=== PATIENT | female | born 1930 | race Caucasian/White ===

== ENCOUNTER 2017-07-19 09:35 | Observation (INO) | payer OTHER, MEDICAID ==
[2017-07-19] VITALS (7 sets, daily range): BP systolic 114–199; BP diastolic 56–78; PULSE 80–98; RESP 18–20; TEMP 96.1–97.9; O2SAT 91–95
[~2017-07-19] VITALS: Ht 165.1 cm; Wt 46.3 kg
[~2017-07-19 09:35] MED LIST: AMLO5TAB22 PO; SM A81CH CHEW
[2017-07-19] MEDS ORDERED: ASPI1TAB57 PO (09:55)
[2017-07-19] MEDS ORDERED: ALBU0.63 NEB (09:55)
[2017-07-19] MEDS ORDERED: LOVA20TA PO (09:55)
[2017-07-19] MEDS ORDERED: SYMB80AE INH (09:55)
[2017-07-19] MEDS ORDERED: LISI2.5T3 PO (09:55)
[2017-07-19] MEDS ORDERED: AMLO10TA2 PO (09:55)
[2017-07-19] MEDS ORDERED: SODIUM CHLORIDE 0.9% FLUSH 10 ML FLUSH IVF PRN (10:00)
--- NOTE | 2017-07-19 10:16 | PD ---
HPI Chief Complaint: Dizziness Time Seen by Provider: 10:14 Travel History International Travel<30 days: No Contact w/Intl Traveler<30days: No Traveled to known affect area: No History of Present Illness HPI 86yo F presented to the ED with a chief complaint of dizziness since Tuesday, . The pt states that on Tuesday she had an episode of feeling dizzy while in [facility], and said that " everything felt like it was moving." Pt admits to only feeling dizzy while standing. Pt states that she has had SOB for about three weeks, along with a productive cough. Pt denies feelings of the room spinning, vomiting, diarrhea, chest pain, abdominal pain or syncope. Modifying Factors: None Associated Signs & Symptoms: Dizziness, coughing, shortness of breath Risk Factors: Elderly PFSH Past Medical History COPD: Yes Coronary Artery Disease: Yes Diminished Hearing: No Gastrointestinal Disorders: Yes (FEEDING TUBE PLACED 07/2011- REMOVED 04/2012) Hypertension: Yes Tetanus Vaccination: < 5 Years Influenza Vaccination: Yes ?: Not Menopausal: Yes Past Surgical History Abdominal Surgery: Yes (FEEDING TUBE S/P VALVE REPLACEMENT) Cardiac Surgery: Yes (Heart Valve) Hysterectomy: Yes Valve Replacement: Yes Social History Alcohol Use: No Tobacco Use: No Substance Use: No Allergies-Medications (Allergen,Severity, Reaction): Coded Allergies: neomycin (Unverified Allergy, Severe, FACIAL SWELLING, 07/19/17) Uncoded Allergies: Imidozozldnyl (Adverse Reaction, Severe, unknown, 12/09/15) . Reported Meds & Prescriptions Reported Meds & Active Scripts Active Reported Symbicort Inh (Budesonide/Formoterol Fumarate) 80-4.5 Mcg/Act Aero 2 Puff INH Q12HR Albuterol Neb (Albuterol Sulfate) 0.63 Mg/3 Ml Neb 0.63 Mg NEB Q6HR NEB PRN Amlodipine (Amlodipine Besylate) 10 Mg Tab 10 Mg PO DAILY Aspirin 81 (Aspirin) 81 Mg Tabdr 81 Mg PO DAILY Lisinopril 2.5 Mg Tab 2.5 Mg PO DAILY Lovastatin 20 Mg Tab 20 Mg PO DAILY Review of Systems Except as stated in HPI: all other systems reviewed are Neg HENT: Positive: Lightheadedness Respiratory: Positive: Cough, Shortness of Breath Physical Exam Narrative GENERAL: Well-developed, thin, elderly white female patient who is currently and mild distress. Awake and oriented 3. She is fairly hard of hearing. SKIN: Focused skin assessment warm/dry. HEAD: Atraumatic. Normocephalic. EYES: Pupils equal and round. No scleral icterus. No injection or drainage. ENT: No nasal bleeding or discharge. Mucous membranes pink and moist. NECK: Trachea midline. No JVD. Supple. CARDIOVASCULAR: Regular rate and rhythm. No murmur appreciated. RESPIRATORY: Mild accessory muscle use. With wheezing throughout. Breath sounds equal bilaterally. GASTROINTESTINAL: Abdomen soft, non-tender, nondistended. Hepatic and splenic margins not palpable. MUSCULOSKELETAL: No obvious deformities. No clubbing. No cyanosis. No edema. NEUROLOGICAL: Awake and alert. No obvious cranial nerve deficits. Motor grossly within normal limits. Normal speech. PSYCHIATRIC: Appropriate mood and affect; insight and judgment normal. Data Data Last Documented VS Vital Signs Date Time Temp Pulse Resp B/P (MAP) Pulse Ox O2 Delivery O2 Flow Rate FiO2 07/19/17 11:30 88 18 132/68 (89) 95 07/19/17 09:56 Room Air 07/19/17 09:39 97.9 Orders Orders Electrocardiogram (07/19/17 09:54) Complete Blood Count With Diff (07/19/17 09:54) Comprehensive Metabolic Panel (07/19/17 09:54) Magnesium (Mg) (07/19/17 09:54) Ckmb (Isoenzyme) Profile (07/19/17 09:54) Troponin I (07/19/17 09:54) Urinalysis - C+S If Indicated (07/19/17 09:54) Ecg Monitoring (07/19/17 09:54) Iv Access Insert/Monitor (07/19/17 09:54) Oximetry (07/19/17 09:54) Sodium Chloride 0.9% Flush (Ns Flush) (07/19/17 10:00) Chest, Single Ap (07/19/17 10:00) Ct Brain W/O Iv Contrast(Rout) (07/19/17 10:00) Blood Culture (07/19/17 10:14) Lactic Acid Sepsis Protocol (07/19/17 10:14) Methylprednisolone So Succ Inj (Solumedr (07/19/17 11:30) Albuterol-Ipratropium Neb (Duoneb Neb) (07/19/17 11:30) Azithromycin Inj (Zithromax Inj) (07/19/17 11:30) Admit Order (Ed Use Only) (07/19/17 13:03) Labs Laboratory Tests Test 07/19/17 10:05 07/19/17 10:35 07/19/17 11:00 White Blood Count 8.8 TH/MM3 Red Blood Count 3.76 MIL/MM3 Hemoglobin 11.7 GM/DL Hematocrit 36.2 % Mean Corpuscular Volume 96.2 FL Mean Corpuscular Hemoglobin 31.1 PG Mean Corpuscular Hemoglobin Concent 32.3 % Red Cell Distribution Width 13.3 % Platelet Count 291 TH/MM3 Mean Platelet Volume 7.8 FL Neutrophils (%) (Auto) 86.4 % Lymphocytes (%) (Auto) 6.1 % Monocytes (%) (Auto) 5.4 % Eosinophils (%) (Auto) 1.5 % Basophils (%) (Auto) 0.6 % Neutrophils # (Auto) 7.6 TH/MM3 Lymphocytes # (Auto) 0.5 TH/MM3 Monocytes # (Auto) 0.5 TH/MM3 Eosinophils # (Auto) 0.1 TH/MM3 Basophils # (Auto) 0.1 TH/MM3 CBC Comment DIFF FINAL Differential Comment Blood Urea Nitrogen 20 MG/DL Creatinine 1.30 MG/DL Random Glucose 114 MG/DL Total Protein 6.8 GM/DL Albumin 3.0 GM/DL Calcium Level 8.7 MG/DL Magnesium Level 2.0 MG/DL Alkaline Phosphatase 89 U/L Aspartate Amino Transf (AST/SGOT) 15 U/L Alanine Aminotransferase (ALT/SGPT) 15 U/L Total Bilirubin 0.6 MG/DL Sodium Level 141 MEQ/L Potassium Level 4.4 MEQ/L Chloride Level 104 MEQ/L Carbon Dioxide Level 32.2 MEQ/L Anion Gap 5 MEQ/L Estimat Glomerular Filtration Rate 39 ML/MIN Total Creatine Kinase 45 U/L Troponin I LESS THAN 0.02 NG/ML Lactic Acid Level 1.5 mmol/L Urine Collection Type CLEAN CATCH Urine Color YELLOW Urine Turbidity CLEAR Urine pH 6.5 Urine Specific [place] 1.015 Urine Protein 30 mg/dL Urine Glucose (UA) NEG mg/dL Urine Ketones NEG mg/dL Urine Occult Blood NEG Urine Nitrite NEG Urine Bilirubin NEG Urine Leukocyte Esterase TRACE Urine WBC 3-5 /hpf Urine Squamous Epithelial Cells 0-5 /hpf Urine Hyaline Casts 6-9 /lpf Microscopic Urinalysis Comment CULT NOT INDICATED Urine Collection Time 11:00 [facility] Medical Decision Making Medical Screen Exam Complete: Yes Emergency Medical Condition: Yes Medical Record Reviewed: Yes Interpretation(s) EKG shows NSR, no ST elevation or depression, and no arrhythmias. No significant T-wave inversions. Laboratory Tests Test 07/19/17 10:05 07/19/17 10:35 07/19/17 11:00 Red Blood Count 3.76 MIL/MM3 (4.00-5.30) Neutrophils (%) (Auto) 86.4 % (16.0-70.0) Lymphocytes (%) (Auto) 6.1 % (9.0-44.0) Lymphocytes # (Auto) 0.5 TH/MM3 (1.0-4.8) Blood Urea Nitrogen 20 MG/DL (7-18) Creatinine 1.30 MG/DL (0.50-1.00) Random Glucose 114 MG/DL (74-106) Albumin 3.0 GM/DL (3.4-5.0) Carbon Dioxide Level 32.2 MEQ/L (21.0-32.0) Estimat Glomerular Filtration Rate 39 ML/MIN (>89) Troponin I LESS THAN 0.02 NG/ML Urine Protein 30 mg/dL (NEG-TRACE) Urine Leukocyte Esterase TRACE (NEG) Urine Hyaline Casts 6-9 /lpf (RARE) Last [address] 07/19/17 1000 Signed Impressions: Service Date/Time: Wednesday, July 19, 2017 10:14 - CONCLUSION: 1. Stable senescent changes without acute intracranial abnormality. Donald Teixeira MD Chest X-Ray 07/19/17 1000 Signed Impressions: Service Date/Time: Wednesday, July 19, 2017 10:12 - CONCLUSION: Diffuse reticulonodular interstitial prominence of undetermined chronicity. Vern Miranda MD Differential Diagnosis Pneumonia versus COPD versus CHF versus brown pneumonitis versus URI versus metabolic issues versus dehydration versus acute intracranial processes versus CVA Narrative Course Patient did not have any focal neurological deficits. CT of the brain is negative for any signs of acute processes. She was tachycardic on ambulation to the bathroom in the ER and felt more symptomatic. Her saturations were in the low to mid 90s on room air. Chest x-ray did show some interstitial pneumonitis bilaterally and there is concern of possible atypical pneumonia. IV antibiotics were initiated after cultures were drawn. Lactate was not significant elevated. Considering her symptoms, my plan would be to admit her for further treatment. Case was discussed with Dr. Earl for admission. Diagnosis Primary Impression: Atypical pneumonia Additional Impression: Dizziness Admitting Information Admitting Physician Requests: Admit Son Cuenca MD Jul 19, 2017 10:16
[2017-07-19 10:17] LABS: AUTOMATED NEUTROPHIL # 7.6 TH/MM3 (1.8-7.7); BASOPHIL # 0.1 TH/MM3 (0-0.2); BASOPHIL % 0.6 % (0.0-2.0); EOSINOPHIL # 0.1 TH/MM3 (0-0.4); EOSINOPHIL % 1.5 % (0.0-4.0); HEMATOCRIT 36.2 % (35.0-46.0); HEMOGLOBIN 11.7 GM/DL (11.6-15.3); LYMPH % 6.1 % (9.0-44.0); LYMPHOCYTE # 0.5 TH/MM3 (1.0-4.8); MEAN CELL VOLUME 96.2 FL (80.0-100.0); MEAN CORPUSCULAR HEMOGLOBIN 31.1 PG (27.0-34.0); MEAN CORPUSCULAR HGB CONC 32.3 % (32.0-36.0); MEAN PLATELET VOLUME 7.8 FL (7.0-11.0); MONO % 5.4 % (0.0-8.0); MONOCYTE # 0.5 TH/MM3 (0-0.9); NEUT % 86.4 % (16.0-70.0); PLATELET COUNT 291 TH/MM3 (150-450); RED BLOOD COUNT 3.76 MIL/MM3 (4.00-5.30); RED CELL DISTRIBUTION WIDTH 13.3 % (11.6-17.2); WHITE BLOOD COUNT 8.8 TH/MM3 (4.0-11.0)
[2017-07-19 10:25] LABS: CHLORIDE 104 MEQ/L (98-107); SODIUM (NA) 141 MEQ/L (136-145)
[2017-07-19 10:28] LABS: CALCIUM 8.7 MG/DL (8.5-10.1)
--- NOTE | 2017-07-19 10:28 | RADRPT ---
EXAM DATE/TIME: 07/19/2017 10:12 [facility] COMPARISON: No previous studies available for comparison. INDICATIONS : Cough, short of breath. MEDICAL HISTORY : Chronic obstructive pulmonary disease. Cardiovascular disease. Hypertension. SURGICAL HISTORY : valve replacement ENCOUNTER: Initial ACUITY: 3 weeks PAIN SCORE: 0/10 LOCATION: Bilateral chest FINDINGS: There is diffuse symmetric bilateral reticulonodular interstitial disease of undetermined chronicity. There is no significant alveolar consolidation or pleural effusion suspected. Heart size is at upper limits of normal. Mediastinal contours are satisfactory. Prosthetic aortic valve is noted. Prominent atherosclerotic vascular calcification is present. Sternotomy wires are noted. CONCLUSION: Diffuse reticulonodular interstitial prominence of undetermined chronicity. Vern Miranda MD on July 19, 2017 at 10:23 Board Certified Radiologist. This report was verified electronically.
--- NOTE | 2017-07-19 10:28 | RADRPT ---
EXAM DATE/TIME: 07/19/2017 10:14 [facility] COMPARISON: CT BRAIN W/O CONTRAST, December 09, 2015, 11:53. INDICATIONS : Dizziness. RADIATION DOSE: 58.70 CTDIvol (mGy) MEDICAL HISTORY : Cardiovascular disease. Hypertension. SURGICAL HISTORY : Hysterectomy. Valve replacement. ENCOUNTER: Initial ACUITY: 3 weeks PAIN SCALE: 0/10 LOCATION: cranial TECHNIQUE: Multiple contiguous axial images were obtained of the head. Using automated exposure control and adj ustment of the mA and/or kV according to patient size, radiation dose was kept as low as reasonably a chievable to obtain optimal diagnostic quality images. DICOM format image data is available electro nically for review and comparison. FINDINGS: CEREBRUM: Mild to moderate diffuse atrophy. The ventricles are normal for degree of atrophy. Stable left basal ganglia calcification. No evidence of midline shift, mass lesion, hemorrhage or acute infarction. N o extra-axial fluid collections are seen. POSTERIOR FOSSA: The cerebellum and brainstem are intact. The 4th ventricle is midline. The cerebellopontine angle i s unremarkable. EXTRACRANIAL: The visualized portion of the orbits is intact. SKULL: The calvaria is intact. No evidence of skull fracture. CONCLUSION: 1. Stable senescent changes without acute intracranial abnormality. Donald Teixeira MD on July 19, 2017 at 10:24 Board Certified Radiologist. This report was verified electronically.
[2017-07-19 10:29] LABS: BICARBONATE 32.2 MEQ/L (21.0-32.0); BLOOD UREA NITROGEN 20 MG/DL (7-18); GLUCOSE,RANDOM 114 MG/DL (74-106)
[2017-07-19 10:32] LABS: ALT (GPT) 15 U/L (10-53); AST (GOT) 15 U/L (15-37); GLOMERULAR FILTRATION RATE 39 ML/MIN (>89)
[2017-07-19 10:34] LABS: TOTAL BILIRUBIN ADULT 0.6 MG/DL (0.2-1.0); TOTAL PROTEIN 6.8 GM/DL (6.4-8.2)
[2017-07-19 10:35] LABS: ALKALINE PHOSPHATASE 89 U/L (45-117)
[2017-07-19 10:37] LABS: TROPONIN I LESS THAN 0.02 NG/ML (0.02-0.05)
[2017-07-19 11:05] LABS: BILIRUBIN, URINE NEG (NEG); BLOOD, URINE NEG (NEG); GLUCOSE,URINE NEG (NEG); KETONE, URINE NEG (NEG); NITRITE,URINE NEG (NEG); PH, URINE 6.5 (5.0-8.5); URINE LEUKOCYTE ESTERASE TRACE (NEG)
[2017-07-19 11:11] LABS: URINE COLOR YELLOW (YELLW/STRAW)
[2017-07-19 11:12] LABS: SQUAMOUS EPITHELIAL CELL URINE 0-5 /hpf (0-5)
[2017-07-19] MEDS ORDERED: AZITHROMYCIN INJ 500 MG in SODIUM CHLOR 0.9% 250 ML INJ 250 ML IV ONE (11:30)
[2017-07-19] MEDS ORDERED: methylPREDNISolone SOD SUCC 125 MG/2 ML VIAL IV PUSH ONE (11:30)
[2017-07-19] MEDS: RESP: ALBUTEROL 2.5 MG/IPRATROPIUM 0.5 MG NEB (SCH) INH ×2 (11:32→11:33)
--- NOTE | 2017-07-19 14:06 | HHI.HP ---
[facility] Leobardo Mcleod MD Admission Diagnosis atypical pneumonia/dizziness Diagnoses: Chief Complaint: Coughing and weakness Travel History International Travel<30 Days: No Contact w/Intl Traveler <30 Da: No Traveled to Known Affected Are: No History of Present Illness 86-year-old white female being admitted for atypical pneumonia and weakness. Patient was in her usual state of health until about 3 weeks ago when she began experiencing onset of a productive cough and generalized weakness and dizziness. Describes the sputum as nonbloody. She went to her primary care provider and underwent some sort of shot of which she cannot remember in the office and was sent home. She states that she has been using her albuterol inhaler nebulizer regularly and what sounds like Symbicort twice a day as well. She states she went back to her primary care provider for follow-up due to no improvement in her symptoms and was sent home to get x-rays. Patient states that she also went to [facility] a few days ago and states that she almost lost consciousness with her vision almost totally blackening out. She says she quickly sat down on an outside bench and regained her vision and her stance. After a few minutes she stood up and says she was able to ambulate home safely. Due to the persistence of her symptoms she decided come to the emergency department. She states she has some lung disease but can't remember name. Says she does see a lung doctor. In the emergency department she received antibiotics. Review of Systems Except as stated in HPI: all other systems reviewed are Neg Past Family Social History Past Medical History Unspecified lung disease Past Surgical History Heart valve replacement Allergies: Coded Allergies: neomycin (Unverified Allergy, Severe, FACIAL SWELLING, 07/19/17) Uncoded Allergies: Imidozozldnyl (Adverse Reaction, Severe, unknown, 12/09/15) . Family History No family history of lung cancer or lung disease Physical Exam Vital Signs Vital Signs Date Time Temp Pulse Resp B/P (MAP) Pulse Ox O2 Delivery O2 Flow Rate FiO2 07/19/17 11:30 88 18 132/68 (89) 95 07/19/17 09:56 95 Room Air 07/19/17 09:56 98 18 139/78 (98) 95 07/19/17 09:50 95 Room Air 07/19/17 09:39 97.9 81 18 121/60 (80) 94 Physical Exam VS: afebrile GENERAL: Elderly white female, thin, minimal distress secondary to coughing SKIN: Warm and dry. EYES: No scleral icterus. No injection or drainage. ENT: No nasal bleeding or discharge. Mucous membranes pink and moist. CARDIOVASCULAR: Regular rate and rhythm. no murmurs RESPIRATORY: No accessory muscle use. Junky breath sounds GASTROINTESTINAL: Abdomen soft, non-tender, nondistended. Extremities: No clubbing, cyanosis, or edema. No obvious deformities. MUSCULOSKELETAL: grossly intact ROM with 4/5 strength in upper and lower extremities proximally; slightly diminished muscle bulk and tone for age and habitus NEUROLOGICAL: Awake and alert. No obvious cranial nerve deficits. No facial droop nor slurred speech noted. PSYCHIATRIC: Appropriate mood and affect; insight and judgment normal. Laboratory Laboratory Tests Test 07/19/17 10:05 07/19/17 10:35 07/19/17 11:00 White Blood Count 8.8 Red Blood Count 3.76 Hemoglobin 11.7 Hematocrit 36.2 Mean Corpuscular Volume 96.2 Mean Corpuscular Hemoglobin 31.1 Mean Corpuscular Hemoglobin Concent 32.3 Red Cell Distribution Width 13.3 Platelet Count 291 Mean Platelet Volume 7.8 Neutrophils (%) (Auto) 86.4 Lymphocytes (%) (Auto) 6.1 Monocytes (%) (Auto) 5.4 Eosinophils (%) (Auto) 1.5 Basophils (%) (Auto) 0.6 Neutrophils # (Auto) 7.6 Lymphocytes # (Auto) 0.5 Monocytes # (Auto) 0.5 Eosinophils # (Auto) 0.1 Basophils # (Auto) 0.1 CBC Comment DIFF FINAL Differential Comment Blood Urea Nitrogen 20 Creatinine 1.30 Random Glucose 114 Total Protein 6.8 Albumin 3.0 Calcium Level 8.7 Magnesium Level 2.0 Alkaline Phosphatase 89 Aspartate Amino Transf (AST/SGOT) 15 Alanine Aminotransferase (ALT/SGPT) 15 Total Bilirubin 0.6 Sodium Level 141 Potassium Level 4.4 Chloride Level 104 Carbon Dioxide Level 32.2 Anion Gap 5 Estimat Glomerular Filtration Rate 39 Total Creatine Kinase 45 Troponin I LESS THAN 0.02 Lactic Acid Level 1.5 Urine Collection Type CLEAN CATCH Urine Color YELLOW Urine Turbidity CLEAR Urine pH 6.5 Urine Specific [place] 1.015 Urine Protein 30 Urine Glucose (UA) NEG Urine Ketones NEG Urine Occult Blood NEG Urine Nitrite NEG Urine Bilirubin NEG Urine Leukocyte Esterase TRACE Urine WBC 3-5 Urine Squamous Epithelial Cells 0-5 Urine Hyaline Casts 6-9 Microscopic Urinalysis Comment CULT NOT INDICATED Urine Collection Time 11:00 Date/Time Source Procedure Growth Status 07/19/17 10:30 Blood Peripheral Aerobic Blood Culture Pending Received 07/19/17 10:30 Blood Peripheral Anaerobic Blood Culture Pending Received Result Diagram: 07/19/17 1005 07/19/17 1005 Imaging Last Impressions Head CT 07/19/17 1000 Signed Impressions: Service Date/Time: Wednesday, July 19, 2017 10:14 - CONCLUSION: 1. Stable senescent changes without acute intracranial abnormality. Donald Teixeira MD Chest X-Ray 07/19/17 1000 Signed Impressions: Service Date/Time: Wednesday, July 19, 2017 10:12 - CONCLUSION: Diffuse reticulonodular interstitial prominence of undetermined chronicity. Vern Miranda MD Caprini VTE Risk Assessment Caprini VTE Risk Assessment: Mod/High Risk (score >= 2) Caprini Risk Assessment Model Point Value = 1 Point Value = 2 Point Value = 3 Point Value = 5 Age 41-60 Minor surgery BMI > 25 kg/m2 Swollen legs Varicose veins or History of unexplained or recurrent spontaneous Oral contraceptives or hormone replacement Sepsis (< 1 month) Serious lung disease, including pneumonia (< 1 month) Abnormal pulmonary function Acute myocardial infarction Congestive heart failure (< 1 month) History of inflammatory bowel disease Medical patient at bed rest Age 61-74 Arthroscopic surgery Major open surgery (> 45 min) Laparoscopic surgery (> 45 min) Malignancy Confined to bed (> 72 hours) Immobilizing plaster cast Central venous access Age >= 75 History of VTE Family history of VTE Factor V Leiden Prothrombin [id number] Lupus anticoagulant Anticardiolipin antibodies Elevated serum homocysteine Heparin-induced thrombocytopenia Other congenital or acquired thrombophilia Stroke (< 1 month) Elective arthroplasty Hip, pelvis, or leg fracture Acute spinal cord injury (< 1 month) Prophylaxis Regimen Total Risk Factor Score Risk Level Prophylaxis Regimen 0-1 Low Early ambulation 2 Moderate Order ONE of the following: *Sequential Compression Device (SCD) *Heparin 5000 units SQ BID 3-4 Higher Order ONE of the following medications: *Heparin 5000 units SQ TID *Enoxaparin/Lovenox 40 mg SQ daily (WT < 150 kg, CrCl > 30 mL/min) *Enoxaparin/Lovenox 30 mg SQ daily (WT < 150 kg, CrCl > 10-29 mL/min) *Enoxaparin/Lovenox 30 mg SQ BID (WT < 150 kg, CrCl > 30 mL/min) AND/OR *Sequential Compression Device (SCD) 5 or more Highest Order ONE of the following medications: *Heparin 5000 units SQ TID (Preferred with Epidurals) *Enoxaparin/Lovenox 40 mg SQ daily (WT < 150 kg, CrCl > 30 mL/min) *Enoxaparin/Lovenox 30 mg SQ daily (WT < 150 kg, CrCl > 10-29 mL/min) *Enoxaparin/Lovenox 30 mg SQ BID (WT < 150 kg, CrCl > 30 mL/min) AND *Sequential Compression Device (SCD) Assessment and Plan Assessment and Plan Possible atypical pneumonia versus pneumonitis on top of unspecified chronic lung disease - We'll continue azithromycin - Consulting pulmonology Generalized weakness - Giving a bolus of IV fluids along with consulting rehabilitation staff - ordering CK, Mg, phos, and b12 - ordering orthostatics - EKG independently reviewed by me shows normal sinus rhythm Physician Certification 2 Midnight Certification Type: Admission for Inpatient Services Order for Inpatient Services The services are ordered in accordance with Medicare regulations or non- Medicare payer requirements, as applicable. In the case of services not specified as inpatient-only, they are appropriately provided as inpatient services in accordance with the 2-midnight benchmark. Estimated LOS (days): 2 2 days is the estimated time the patient will need to remain in the hospital, assuming treatment plan goals are met and no additional complications. Post-Hospital Plan: Not yet determined Trevor Earl MD Jul 19, 2017 14:06
[2017-07-19] MEDS ORDERED: PILL SPLITTER OTHER PRN (14:15)
--- NOTE | 2017-07-19 15:49 | EKG ---
Date Performed: 07/19/2017 Time Performed: 10:06:39 PTAGE: 86 years EKG: Sinus rhythm POSSIBLE LEFT ATRIAL ENLARGEMENT INCOMPLETE RIGHT BUNDLE BRANCH BLOCK LEFT ANTERIOR FASCICULAR BLOCK ABNORMAL ECG PREVIOUS TRACING : 12/04/2013 11.26 Compared to prior tracing no significant change DOCTOR: Milton Fernandes Interpretating Date/Time 07/19/2017 15:48:33
[2017-07-19] MEDS ORDERED: methylPREDNISolone SOD SUCC 125 MG/2 ML VIAL IV PUSH SCH (18:00)
[2017-07-19] MEDS: methylPREDNISolone SOD SUCC 40 MG/1 ML VIAL IV PUSH SCH (20:58)
[2017-07-19] MEDS: guaiFENesin E.R. 600 MG TAB PO SCH (20:58)
[2017-07-19] MEDS: BUDESONIDE-FORMOTEROL 80/4.5 MCG INHALER INH SCH (21:29)
[2017-07-19] MEDS ORDERED: RESP: ALBUTEROL 2.5 MG/IPRATROPIUM 0.5 MG NEB (SCH) NEB ONE (22:15)
[2017-07-19] MEDS: RESP: ACETYLCYSTEINE 10% 30 ML NEB NEB SCH (22:39)
[2017-07-20] VITALS (9 sets, daily range): BP systolic 110–142; BP diastolic 62–83; PULSE 76–100; RESP 16–20; TEMP 96–98; O2SAT 95–99
[2017-07-20] MEDS: RESP: ACETYLCYSTEINE 10% 30 ML NEB NEB SCH (03:48)
[2017-07-20] MEDS: methylPREDNISolone SOD SUCC 40 MG/1 ML VIAL IV PUSH SCH ×3 (05:42→21:17)
--- NOTE | 2017-07-20 08:16 | MB ---
cc: ALEYDA ZELAYA DATE OF CONSULTATION 07/19/[address] Earl REASON FOR CONSULTATION Pulmonary management. HISTORY OF THE PRESENT ILLNESS Ms. Carr is a 86-year-old female who is known to me from the office. She has history of bronchiectasis, asbestos exposure. She came to the hospital with worsening of her shortness of breath. She has not been feeling well for the last 3 weeks or so. She has cough and congestion, not able to bring up phlegm and it is hard for her to go to sleep. She saw her primary care physician Dr. Leobardo Mcleod and was given a shot of antibiotic and steroids. One week later she went to see him. She was not getting better. She was planning to come to my office. However, last night her shortness of breath became much worse and she decided to come to the emergency room. She had a workup done. Her chest x-ray shows she has diffuse reticulonodular interstitial prominence. She had a CT scan of the head done which shows stable senescent changes without acute intracranial abnormality. Her CBC showed a WBC count of 8.8, hemoglobin 11.7, hematocrit 36.2, MCV 96, platelet count 291. Her sodium 141, potassium 4.4, chloride 104, CO2 32, BUN 20, creatinine 1.30. PAST MEDICAL HISTORY Significant for: 1. History of bronchiectasis. 2. Heart valve replacement. MEDICATIONS She is currently takin. Zithromax 500 milligrams daily. 2. Amlodipine 10 milligrams daily. 3. Aspirin 81 mg a day. 4. Pravachol 20 milligrams daily. 5. Lisinopril 2.5 mg daily. 6. Symbicort 80/4.5 two puffs twice a daily. 7. Solu-Medrol 125 mg q.8h. ALLERGIES SHE IS ALLERGIC TO NEOMYCIN AND IMIDOZOZLDNYL. SOCIAL HISTORY She has no history of smoking. Has had second hand smoke exposure. 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 FAMILY HISTORY She lives with her [id number]. She has a son and a daughter. REVIEW OF SYSTEMS Weight is stable. No DVT or pulmonary embolism. No seizure, stroke or epilepsy. PHYSICAL EXAMINATION GENERAL: A thin-built elderly female mild short of breath. VITAL SIGNS: Blood pressure 130/72, heart rate 85, respirations 20, temperature 96.1. HEENT: Examination unremarkable. NECK: Supple. JVP not raised. CHEST: Bilat. scattered rales. CARDIOVASCULAR: S1-S2 normal. ABDOMEN: Benign. EXTREMITIES: No edema. IMPRESSION 1. Bronchiectasis. 2. Acute bronchitis. 3. Asbestos exposure. 4. Chronic lung disease. PLAN We will continue antibiotic. I will put her on Mucinex one tablet 600 milligrams twice a day. Encourage her to use Acapella and give her Mucomyst nebulizer treatment. Decrease her Solu-Medrol 40 mg q.8h. Check her cultures. Further treatment will depend on the course in the hospital. Thank you Dr. Earl for this consultation. MD [facility]/MAURA /7:47 PM /8:08 AM MARIUSZ
[2017-07-20] MEDS: BUDESONIDE-FORMOTEROL 80/4.5 MCG INHALER INH SCH ×2 (09:41→21:17)
[2017-07-20] MEDS: PRAVASTATIN SOD 20 MG TAB PO SCH (09:41)
[2017-07-20] MEDS: ASPIRIN EC 81 MG TABEC PO SCH (09:42)
[2017-07-20] MEDS: guaiFENesin E.R. 600 MG TAB PO SCH ×2 (09:43→21:16)
[2017-07-20] MEDS: LISINOPRIL 5 MG TAB PO SCH (09:44)
[2017-07-20] MEDS: ACETYLCYSTEINE 10% PO SCH ×3 (10:36→21:42)
[2017-07-20] MEDS: RESP: ALBUTEROL 2.5 MG/IPRATROPIUM 0.5 MG NEB (SCH) NEB ×3 (10:46→21:40)
[2017-07-20] MEDS: AZITHROMYCIN INJ 500 MG in SODIUM CHLOR 0.9% 250 ML INJ 250 ML IV SCH (13:51)
--- NOTE | 2017-07-20 17:02 | HHI.PR ---
Subjective Remarks 86 YOWF with Bronchoectesis,Ac bronchitis Uses Nebs, Mucomyst Able to bring up some mucous Breathing better No fever Objective Vital Signs Vital Signs Date Time Temp Pulse Resp B/P (MAP) Pulse Ox O2 Delivery O2 Flow Rate FiO2 07/20/17 10:44 96 21 07/20/17 08:01 98 07/20/17 04:00 97.9 89 20 121/78 (92) 96 07/20/17 00:00 96.0 84 20 120/67 (84) 95 07/19/17 21:45 95 21 07/19/17 20:00 81 07/19/17 20:00 96.7 80 18 114/63 (80) 95 I/O 07/19/17 07/19/17 07/19/17 07/20/17 07/20/17 07/20/17 07:00 15:00 23:00 07:00 15:00 23:00 Intake Total 250 ml 60 ml Balance 250 ml 60 ml Intake Oral 60 ml IV Total 250 ml # Voids 3 # Bowel Movements 0 Result Diagram: 07/19/17 1005 07/19/17 1005 Objective Remarks GENERAL: Frail elderly female, NAD SKIN: Warm and dry. HEAD: Normocephalic. EYES: No scleral icterus. No injection or drainage. NECK: Supple, trachea midline. No JVD or lymphadenopathy. CARDIOVASCULAR: Regular rate and rhythm without murmurs, gallops, or rubs. RESPIRATORY: Breath sounds equal bilaterally. No accessory muscle use. Basal rales GASTROINTESTINAL: Abdomen soft, non-tender, nondistended. MUSCULOSKELETAL: No cyanosis, or edema. BACK: Nontender without obvious deformity. No CVA tenderness. A/P Assessment and Plan Bronchiectesis Ac Bronchitis Ch. lung disease Asbestos exposure PLAN: cont Abx Aerosol nebs Mucomyst nebs Cont Mucinex IV Solumedrol Supplement 02 Vineet Carbajal MD Jul 20, 2017 17:02
--- NOTE | 2017-07-20 18:25 | HHI.PR ---
Subjective Remarks Patient reports marked improvement in her symptoms today. Says she's able to get her phlegm out more with her coughing today. Nursing denies any deterioration since last night. Objective Vital Signs Date Time Temp Pulse Resp B/P (MAP) Pulse Ox O2 Delivery O2 Flow Rate FiO2 07/20/17 10:44 96 21 07/20/17 08:01 98 07/20/17 04:00 97.9 89 20 121/78 (92) 96 07/20/17 00:00 96.0 84 20 120/67 (84) 95 07/19/17 21:45 95 21 07/19/17 20:00 81 07/19/17 20:00 96.7 80 18 114/63 (80) 95 I/O 07/19/17 07/19/17 07/19/17 07/20/17 07/20/17 07/20/17 07:00 15:00 23:00 07:00 15:00 23:00 Intake Total 250 ml 60 ml Balance 250 ml 60 ml Intake Oral 60 ml IV Total 250 ml # Voids 3 4 # Bowel Movements 0 Result Diagram: 07/19/17 1005 07/19/17 1005 Objective Remarks Lungs still have crackles but much less than yesterday Unlabored breathing No conversive dyspnea A/P Assessment and Plan Possible atypical pneumonia versus pneumonitis on top of unspecified chronic lung disease - We'll continue azithromycin - appreciate pulmonology input - IV steroids, Mucomyst, DuoNeb's - overall improving. - ordering CK, Mg, phos, and b12 - wnl Trevor Earl MD Jul 20, 2017 18:25
[2017-07-21] VITALS (9 sets, daily range): BP systolic 111–129; BP diastolic 62–91; PULSE 80–100; RESP 16–20; TEMP 96.1–98.1; O2SAT 93–98
[2017-07-21] MEDS: ACETYLCYSTEINE 10% PO SCH ×4 (03:13→21:23)
[2017-07-21] MEDS: RESP: ALBUTEROL 2.5 MG/IPRATROPIUM 0.5 MG NEB (SCH) NEB ×4 (03:13→21:23)
[2017-07-21] MEDS: methylPREDNISolone SOD SUCC 40 MG/1 ML VIAL IV PUSH SCH (05:48)
[2017-07-21] MEDS: guaiFENesin E.R. 600 MG TAB PO SCH ×2 (08:15→21:36)
[2017-07-21] MEDS: ASPIRIN EC 81 MG TABEC PO SCH (08:15)
[2017-07-21] MEDS: LISINOPRIL 5 MG TAB PO SCH (08:16)
[2017-07-21] MEDS: PRAVASTATIN SOD 20 MG TAB PO SCH (08:16)
--- NOTE | 2017-07-21 10:14 | HHI.FF ---
Face to Face Verification Diagnosis: (1) Dizziness (2) Atypical pneumonia Physical Therapy Order: Evaluate and Treat Occupational Therapy Order: Evaluate and Treat Home Health Nursing Order: Medical education Signs/symptoms of disease process Home Health Aide Order: To Assist In: Bathing and personal care I have seen patient Alana Carr on 07/21/17. My clinical findings support the need for the requested home health care services because: Ltd mobility - disease progression Limited ability to care for self I certify that my clinical findings support that this patient is homebound because: Unsafe to leave home unassisted Trevor Earl MD Jul 21, 2017 10:14
--- NOTE | 2017-07-21 13:27 | HHI.PR ---
Subjective Remarks Nursing denies any deterioration since last night. Patient herself says she feels good overall. Says her shortness of breath is still there but better since admission. Objective Vital Signs Date Time Temp Pulse Resp B/P (MAP) Pulse Ox O2 Delivery O2 Flow Rate FiO2 07/21/17 09:26 95 21 07/21/17 08:00 98.1 99 16 129/91 (104) 98 07/21/17 04:00 96.4 91 18 126/75 (92) 96 07/21/17 00:00 96.9 100 20 111/62 (78) 93 07/20/17 21:43 95 21 07/20/17 20:00 96 07/20/17 20:00 97.9 94 18 110/62 (78) 99 07/20/17 16:00 98.0 100 16 130/77 (94) 98 I/O 07/20/17 07/20/17 07/20/17 07/21/17 07/21/17 07/21/17 07:00 15:00 23:00 07:00 15:00 23:00 Intake Total 60 ml 250 ml Balance 60 ml 250 ml Intake Oral 60 ml IV Total 250 ml # Voids 3 4 4 # Bowel Movements 0 0 Result Diagram: 07/19/17 1005 07/19/17 1005 Objective Remarks Lungs having mild crackles at bases Unlabored breathing No conversive dyspnea A/P Assessment and Plan Possible atypical pneumonia versus pneumonitis on top of unspecified chronic lung disease - continue azithromycin - appreciate pulmonology input - Switching to by mouth steroids, continue Mucomyst, DuoNeb's - overall improving. - CK, Mg, phos, and b12 - wnl Lovenox for dvt prophylaxis. Trevor Earl MD Jul 21, 2017 13:27
[2017-07-21] MEDS ORDERED: ENOXAPARIN SODIUM 30 MG/0.3 ML SYRINGE SQ SCH (14:00)
[2017-07-21] MEDS: AZITHROMYCIN INJ 500 MG in SODIUM CHLOR 0.9% 250 ML INJ 250 ML IV SCH (15:10)
--- NOTE | 2017-07-21 18:59 | HHI.PR ---
Subjective Remarks 86 YOWF with Bronchoectesis,Ac bronchitis Uses Nebs, Mucomyst Able to bring up some mucous Breathing better No fever " I feel better today" Objective Vital Signs Vital Signs Date Time Temp Pulse Resp B/P (MAP) Pulse Ox O2 Delivery O2 Flow Rate FiO2 07/21/17 16:00 98.0 80 16 124/80 (95) 98 07/21/17 12:00 98.0 90 16 120/81 (94) 98 07/21/17 09:26 95 21 07/21/17 08:25 92 07/21/17 08:00 98.1 99 16 129/91 (104) 98 07/21/17 04:00 96.4 91 18 126/75 (92) 96 07/21/17 00:00 96.9 100 20 111/62 (78) 93 07/20/17 21:43 95 21 07/20/17 20:00 96 07/20/17 20:00 97.9 94 18 110/62 (78) 99 I/O 07/20/17 07/20/17 07/20/17 07/21/17 07/21/17 07/21/17 06:59 14:59 22:59 06:59 14:59 22:59 Intake Total 60 ml 250 ml Balance 60 ml 250 ml Intake Oral 60 ml IV Total 250 ml # Voids 3 4 4 # Bowel Movements 0 0 Result Diagram: 07/19/17 1005 07/19/17 1005 Objective Remarks GENERAL: Frail elderly female, NAD SKIN: Warm and dry. HEAD: Normocephalic. EYES: No scleral icterus. No injection or drainage. NECK: Supple, trachea midline. No JVD or lymphadenopathy. CARDIOVASCULAR: Regular rate and rhythm without murmurs, gallops, or rubs. RESPIRATORY: Breath sounds equal bilaterally. No accessory muscle use. Basal rales GASTROINTESTINAL: Abdomen soft, non-tender, nondistended. MUSCULOSKELETAL: No cyanosis, or edema. BACK: Nontender without obvious deformity. No CVA tenderness. A/P Assessment and Plan Bronchiectesis Ac Bronchitis Ch. lung disease Asbestos exposure PLAN: cont Abx Aerosol nebs Mucomyst nebs Cont Mucinex DC Solumedrol pred 20 mg bid DC plans for AM Supplement 02 Vineet Carbajal MD Jul 21, 2017 18:59
[2017-07-21] MEDS: BUDESONIDE-FORMOTEROL 80/4.5 MCG INHALER INH SCH (21:36)
[2017-07-21] MEDS: predniSONE 20 MG TAB PO SCH (21:36)
[2017-07-22] VITALS: BP 112/73; PULSE 91; RESP 18; TEMP 97.5; O2SAT 93
[2017-07-22] MEDS: RESP: ALBUTEROL 2.5 MG/IPRATROPIUM 0.5 MG NEB (SCH) NEB ×2 (03:45→10:03)
[2017-07-22] MEDS: ACETYLCYSTEINE 10% PO SCH ×2 (03:46→10:03)
[2017-07-22 04:00] VITALS: BP 114/70; PULSE 94; RESP 20; TEMP 96.7; O2SAT 92
[2017-07-22 08:00] VITALS: BP 118/71; PULSE 98; RESP 16; TEMP 97.7; O2SAT 96
[2017-07-22] MEDS: BUDESONIDE-FORMOTEROL 80/4.5 MCG INHALER INH SCH (08:43)
[2017-07-22] MEDS: LISINOPRIL 5 MG TAB PO SCH (08:43)
[2017-07-22] MEDS: guaiFENesin E.R. 600 MG TAB PO SCH (08:43)
[2017-07-22] MEDS: ASPIRIN EC 81 MG TABEC PO SCH (08:43)
[2017-07-22] MEDS: predniSONE 20 MG TAB PO SCH (08:44)
[2017-07-22] MEDS: PRAVASTATIN SOD 20 MG TAB PO SCH (08:44)
[2017-07-22 09:12] VITALS: PULSE 89
[2017-07-22 10:07] VITALS: O2SAT 93
[2017-07-22] MEDS ORDERED: guaiFENesin ER PO (11:01)
[2017-07-22] MEDS ORDERED: PRED10 PO (11:01)
[2017-07-22] MEDS ORDERED: AZIT500T2 PO (11:01)
[2017-07-22] MEDS ORDERED: PRED20 PO (11:01)
[2017-07-22] MEDS ORDERED: VENTAER INH (11:01)
[2017-07-22] MEDS ORDERED: ACET10SO3 PO (11:01)
--- NOTE | 2017-07-22 11:03 | HHI.DCPOC ---
Discharge Care Plan Diagnosis: (1) Atypical pneumonia Your Health Problems Are: Shortness of Breath Additional Problems Bronchiectasis Acute Bronchitis COPD Asbestos exposure Goals to Promote Your Health * To prevent worsening of your condition and complications * To maintain your health at the optimal level Directions to Meet Your Goals Take your medications as prescribed Follow your dietary instruction Follow activity as directed Keep your appointments as scheduled Take your immunizations and boosters as scheduled If your symptoms worsen call your PCP, if no PCP go to Urgent Care Center or Emergency Room Smoking is Dangerous to Your Health. Avoid second hand smoke Call the 24-hour hour crisis hotline for domestic abuse at Arin Sandra Jul 22, 2017 11:03
--- NOTE | 2017-07-22 11:46 | HHI.PR ---
Subjective Remarks Nursing denies any deterioration since last night. Patient herself says she feels very good. She says she does not have a rescue inhaler but does have a nebulizer at home. Objective Vital Signs Date Time Temp Pulse Resp B/P (MAP) Pulse Ox O2 Delivery O2 Flow Rate FiO2 07/22/17 10:07 93 21 07/22/17 09:12 89 07/22/17 08:00 97.7 98 16 118/71 (87) 96 07/22/17 04:00 96.7 94 20 114/70 (85) 92 07/22/17 00:00 97.5 91 18 112/73 (86) 93 07/21/17 21:25 94 21 07/21/17 20:00 91 07/21/17 20:00 96.1 94 18 115/66 (82) 94 07/21/17 16:00 98.0 80 16 124/80 (95) 98 07/21/17 12:00 98.0 90 16 120/81 (94) 98 I/O 07/21/17 07/21/17 07/21/17 07/22/17 07/22/17 07/22/17 06:59 14:59 22:59 06:59 14:59 22:59 Intake Total 360 ml 480 ml 240 ml Balance 360 ml 480 ml 240 ml Intake Oral 360 ml 480 ml 240 ml # Voids 4 2 2 # Bowel Movements 0 0 0 Result Diagram: 07/19/17 1005 07/19/17 1005 Objective Remarks Lungs having mild crackles at bases Unlabored breathing No conversive dyspnea; NAD A/P Assessment and Plan Possible atypical pneumonia versus pneumonitis on top of unspecified chronic lung disease - continue azithromycin - appreciate pulmonology input - Switching to by mouth steroids, continue Mucomyst, DuoNeb's - overall improving. - CK, Mg, phos, and b12 - wnl Patient significantly improved quickly. Patient has met maximal benefit from hospitalization and is clinically stable for discharge. She'll be discharged on steroids; to be further modified by string winding machine operator as outpatient. Trevor Earl MD Jul 22, 2017 11:46
--- NOTE | 2017-07-22 16:10 | HHI.PR ---
Subjective Remarks 86 YOWF with Bronchoectesis,Ac bronchitis Uses Nebs, Mucomyst Able to bring up some mucous Breathing better No fever No new complaint Objective Vital Signs Vital Signs Date Time Temp Pulse Resp B/P (MAP) Pulse Ox O2 Delivery O2 Flow Rate FiO2 07/22/17 10:07 93 21 07/22/17 09:12 89 07/22/17 08:00 97.7 98 16 118/71 (87) 96 07/22/17 04:00 96.7 94 20 114/70 (85) 92 07/22/17 00:00 97.5 91 18 112/73 (86) 93 07/21/17 21:25 94 21 07/21/17 20:00 91 07/21/17 20:00 96.1 94 18 115/66 (82) 94 I/O 07/21/17 07/21/17 07/21/17 07/22/17 07/22/17 07/22/17 07:00 15:00 23:00 07:00 15:00 23:00 Intake Total 360 ml 480 ml 240 ml Balance 360 ml 480 ml 240 ml Intake Oral 360 ml 480 ml 240 ml # Voids 4 2 2 # Bowel Movements 0 0 0 Result Diagram: 07/19/17 1005 07/19/17 1005 Objective Remarks GENERAL: Frail elderly female, NAD SKIN: Warm and dry. HEAD: Normocephalic. EYES: No scleral icterus. No injection or drainage. NECK: Supple, trachea midline. No JVD or lymphadenopathy. CARDIOVASCULAR: Regular rate and rhythm without murmurs, gallops, or rubs. RESPIRATORY: Breath sounds equal bilaterally. No accessory muscle use. Basal rales GASTROINTESTINAL: Abdomen soft, non-tender, nondistended. MUSCULOSKELETAL: No cyanosis, or edema. BACK: Nontender without obvious deformity. No CVA tenderness. A/P Assessment and Plan Bronchiectesis Ac Bronchitis Ch. lung disease Asbestos exposure PLAN: cont Abx Aerosol nebs Mucomyst nebs Cont Mucinex pred 20 mg bid Supplement 02 DC Plans for home Will FU in office Vineet Carbajal MD Jul 22, 2017 16:10
== END 2017-07-22 13:10 | disposition home or self-care (01) ==
LOC: PHED 09:35 → PHEDA 13:05 → PH3A 14:15
PROVIDERS: ADMIT Hospitalist; ATTEND Hospitalist
DX: J18.9 Pneumonia, unspecified organism (principal); J20.9 Acute bronchitis, unspecified; J44.0 Chronic obstructive pulmonary disease with (acute) lower respiratory infection; J84.89 Other specified interstitial pulmonary diseases; I10 Essential (primary) hypertension; I25.10 Atherosclerotic heart disease of native coronary artery without angina pectoris; R94.31 Abnormal electrocardiogram [ECG] [EKG]; Z77.090 Contact with and (suspected) exposure to asbestos; Z77.22 Contact with and (suspected) exposure to environmental tobacco smoke (acute) (chronic); Z90.710 Acquired absence of both cervix and uterus; Z95.2 Presence of prosthetic heart valve
CPT/HCPCS: 70450; 71045; 80053; 81001; 82550; 82607; 83605; 83735; 84100; 84484; 85025; 87040; 93005; 94640; 94664; 96365; 96366; 96372; 96375; 96376; 97110; 97116; 97162; 97166; 97535; 99285; G0378; G8987; G8988; J0456; J1650; J2920; J2930; J7050; J7512; J7608

== ENCOUNTER 2017-09-06 13:00 | Inpatient (IN) | payer OTHER, MEDICAID, MEDICARE ==
[2017-09-06] VITALS (8 sets, daily range): BP systolic 135–150; BP diastolic 60–75; PULSE 88–98; RESP 16–24; TEMP 97.3–98; O2SAT 88–96
[~2017-09-06] VITALS: Ht 160 cm; Wt 46.8 kg
[~2017-09-06 13:00] MED LIST changes: +ACET10SO3 PO; +ALBU0.63 NEB; +AMLO10TA2 PO; -AMLO5TAB22 PO; +ASPI1TAB57 PO; +AZIT500T2 PO; +LISI2.5T3 PO; +LOVA20TA PO; +PRED10 PO; +PRED20 PO; -SM A81CH CHEW; +SYMB80AE INH; +VENTAER INH; +guaiFENesin ER PO
[2017-09-06] MEDS ORDERED: RESP: ALBUTEROL 2.5 MG/IPRATROPIUM 0.5 MG NEB (SCH) NEB ONE ×2 (13:45→14:45)
[2017-09-06 13:55] LABS: BASOPHIL # 0.1 TH/MM3 (0-0.2); BASOPHIL % 1.1 % (0.0-2.0); EOSINOPHIL % 0.2 % (0.0-4.0); HEMATOCRIT 37.7 % (35.0-46.0); HEMOGLOBIN 12.4 GM/DL (11.6-15.3); LYMPH % 9.6 % (9.0-44.0); LYMPHOCYTE # 1.1 TH/MM3 (1.0-4.8); MEAN CELL VOLUME 95.2 FL (80.0-100.0); MEAN CORPUSCULAR HEMOGLOBIN 31.4 PG (27.0-34.0); MEAN PLATELET VOLUME 8.3 FL (7.0-11.0); MONO % 8.4 % (0.0-8.0); MONOCYTE # 0.9 TH/MM3 (0-0.9); NEUT % 80.7 % (16.0-70.0); PLATELET COUNT 181 TH/MM3 (150-450); RED BLOOD COUNT 3.96 MIL/MM3 (4.00-5.30); RED CELL DISTRIBUTION WIDTH 13.2 % (11.6-17.2); WHITE BLOOD COUNT 11.1 TH/MM3 (4.0-11.0)
--- NOTE | 2017-09-06 14:00 | PD ---
HPI Chief Complaint: Respiratory Symptoms Time Seen by Provider: 13:29 Travel History International Travel<30 days: No Contact w/Intl Traveler<30days: No Traveled to known affect area: No History of Present Illness HPI This 86-year-old female is complaining of cough and shortness of breath.. At that time a chest x-ray showed diffuse reticulonodular infiltrates. She was treated with prednisone and Zithromax says she felt a bit better soon after getting home she had recurrence of her symptoms. She has had a persistent hacking cough. She feels short of breath. She is unable to lay flat without getting short of breath. She has had an aortic valve replaced in 2011. She has never smoked cigarettes. She does say that she has been exposed to a lot of cigarette smoke in the past. She has been diagnosed with COPD and uses an albuterol nebulizer at home which seems to help her. She has never been on home oxygen PFSH Past Medical History Cardiovascular Problems: Yes (RBBB AND ANT FASICULAR BLOCK) COPD: Yes Coronary Artery Disease: Yes Diminished Hearing: No Gastrointestinal Disorders: Yes (FEEDING TUBE PLACED 07/2011- REMOVED 04/2012) Hypertension: Yes Musculoskeletal: Yes (OSTEOPOROSIS) Menopausal: Yes Past Surgical History Abdominal Surgery: Yes (FEEDING TUBE S/P VALVE REPLACEMENT, no longer in place) Cardiac Surgery: Yes (Heart Valve) Hysterectomy: Yes Valve Replacement: Yes Social History Alcohol Use: No Tobacco Use: No Substance Use: No Allergies-Medications (Allergen,Severity, Reaction): Coded Allergies: neomycin (Unverified Allergy, Severe, FACIAL SWELLING, 09/06/17) Uncoded Allergies: Imidozozldnyl (Adverse Reaction, Severe, unknown, 12/09/15) . Reported Meds & Prescriptions Reported Meds & Active Scripts Active Ventolin Hfa 18 GM Inh (Albuterol Sulfate) 90 Mcg/Act Aer 2 Puff INH Q4-6H PRN Reported Symbicort Inh (Budesonide/Formoterol Fumarate) 80-4.5 Mcg/Act Aero 2 Puff INH Q12HR Albuterol Neb (Albuterol Sulfate) 0.63 Mg/3 Ml Neb 0.63 Mg NEB Q6HR NEB PRN Amlodipine (Amlodipine Besylate) 10 Mg Tab 10 Mg PO DAILY Aspirin 81 (Aspirin) 81 Mg Tabdr 81 Mg PO DAILY Lisinopril 2.5 Mg Tab 2.5 Mg PO DAILY Lovastatin 20 Mg Tab 20 Mg PO DAILY Review of Systems General / Constitutional: No: Fever, Chills Eyes: No: Diploplia, Blurred Vision HENT: No: Headaches Cardiovascular: No: Chest Pain or Discomfort Respiratory: Positive: Cough, Shortness of Breath, Orthopnea, No: Pleuritic Pain Gastrointestinal: Positive: Loss of Appetite, No: Nausea, Vomiting Genitourinary: No: Urgency, Frequency Musculoskeletal: No: Myalgias, Arthralgias Skin: No Rash Neurologic: Positive: Weakness, Dizziness Hematologic/Lymphatic: No: Easy Bruising Physical Exam Narrative GENERAL: Thin chronically ill-appearing patient. Her O2 saturation on room air was 88% on arrival SKIN: Focused skin assessment warm/dry. HEAD: Atraumatic. Normocephalic. EYES: Pupils equal and round. No scleral icterus. No injection or drainage. ENT: No nasal bleeding or discharge. Mucous membranes pink and moist. NECK: Trachea midline. No JVD. CARDIOVASCULAR: Regular rate and rhythm. No murmur appreciated. RESPIRATORY: There is accessory muscle use. There are coarse bilateral rhonchi and rales GASTROINTESTINAL: Abdomen soft, non-tender, nondistended. Hepatic and splenic margins not palpable. MUSCULOSKELETAL: No obvious deformities. No clubbing. No cyanosis. No edema. NEUROLOGICAL: Awake and alert. No obvious cranial nerve deficits. Motor grossly within normal limits. Normal speech. PSYCHIATRIC: Appropriate mood and affect; insight and judgment normal. Data Data Last Documented VS Vital Signs Date Time Temp Pulse Resp B/P (MAP) Pulse Ox O2 Delivery O2 Flow Rate FiO2 09/06/17 13:53 96 Nasal Cannula 2.00 09/06/17 13:25 24 09/06/17 13:06 98.0 89 137/70 (92) Orders Orders Sepsis Workup Initiated (09/06/17 ) Complete Blood Count With Diff (09/06/17 13:42) Comprehensive Metabolic Panel (09/06/17 13:42) Prothrombin Time / Inr (Pt) (09/06/17 13:42) Act Partial Throm Time (Ptt) (09/06/17 13:42) Lactic Acid Sepsis Protocol (09/06/17 13:42) Troponin I (09/06/17 13:42) Urinalysis - C+S If Indicated (09/06/17 13:42) Influenzae A/B Antigen (09/06/17 13:42) Blood Culture (09/06/17 13:42) Chest, Single Ap (09/06/17 13:42) Blood Glucose (09/06/17 13:42) Ecg Monitoring (09/06/17 13:42) Iv Access Insert/Monitor (09/06/17 13:42) Oximetry (09/06/17 13:42) Oxygen Administration (09/06/17 13:42) Albuterol-Ipratropium Neb (Duoneb Neb) (09/06/17 13:45) B-Type Natriuretic Peptide (09/06/17 13:42) Methylprednisolone So Succ Inj (Solumedr (09/06/17 14:45) Albuterol-Ipratropium Neb (Duoneb Neb) (09/06/17 14:45) Labs Laboratory Tests Test 09/06/17 13:45 White Blood Count 11.1 TH/MM3 Red Blood Count 3.96 MIL/MM3 Hemoglobin 12.4 GM/DL Hematocrit 37.7 % Mean Corpuscular Volume 95.2 FL Mean Corpuscular Hemoglobin 31.4 PG Mean Corpuscular Hemoglobin Concent 33.0 % Red Cell Distribution Width 13.2 % Platelet Count 181 TH/MM3 Mean Platelet Volume 8.3 FL Neutrophils (%) (Auto) 80.7 % Lymphocytes (%) (Auto) 9.6 % Monocytes (%) (Auto) 8.4 % Eosinophils (%) (Auto) 0.2 % Basophils (%) (Auto) 1.1 % Neutrophils # (Auto) 9.0 TH/MM3 Lymphocytes # (Auto) 1.1 TH/MM3 Monocytes # (Auto) 0.9 TH/MM3 Eosinophils # (Auto) 0.0 TH/MM3 Basophils # (Auto) 0.1 TH/MM3 CBC Comment DIFF FINAL Differential Comment Prothrombin Time 10.4 SEC Prothromb Time International Ratio 1.0 RATIO Activated Partial Thromboplast Time 28.0 SEC Blood Urea Nitrogen 22 MG/DL Creatinine 1.40 MG/DL Random Glucose 104 MG/DL Total Protein 7.5 GM/DL Albumin 3.6 GM/DL Calcium Level 8.7 MG/DL Alkaline Phosphatase 98 U/L Aspartate Amino Transf (AST/SGOT) 40 U/L Alanine Aminotransferase (ALT/SGPT) 20 U/L Total Bilirubin 0.4 MG/DL Sodium Level 134 MEQ/L Potassium Level 4.5 MEQ/L Chloride Level 98 MEQ/L Carbon Dioxide Level 27.8 MEQ/L Anion Gap 8 MEQ/L Estimat Glomerular Filtration Rate 36 ML/MIN Lactic Acid Level 1.3 mmol/L Troponin I LESS THAN 0.02 NG/ML B-Type Natriuretic Peptide 92 PG/ML MDM Medical Decision Making Medical Screen Exam Complete: Yes Emergency Medical Condition: Yes Medical Record Reviewed: Yes Differential Diagnosis Differential includes CHF, COPD exacerbation, pneumonia Narrative Course Chest x-ray shows cardiomegaly and previous heart valve replacement. Chronic interstitial densities without acute infiltrate. With her history of valve replacement I was concerned that this may represent congestive heart failure however her BNP is only 92. She has been restarted on Solu-Medrol and given repeated doses of nebulizer. She remains dyspneic. With supplemental oxygen her sats are 95% but she remains symptomatic with coarse bilateral rales and rhonchi Diagnosis Primary Impression: COPD exacerbation Bryce Lau MD Sep 06, 2017 14:00
[2017-09-06 14:09] LABS: CHLORIDE 98 MEQ/L (98-107); SODIUM (NA) 134 MEQ/L (136-145)
[2017-09-06 14:12] LABS: ALBUMIN 3.6 GM/DL (3.4-5.0); BICARBONATE 27.8 MEQ/L (21.0-32.0); BLOOD UREA NITROGEN 22 MG/DL (7-18); CALCIUM 8.7 MG/DL (8.5-10.1); GLUCOSE,RANDOM 104 MG/DL (74-106)
--- NOTE | 2017-09-06 14:14 | RADRPT ---
EXAM DATE/TIME: 09/06/2017 13:58 [facility] COMPARISON: CHEST SINGLE AP, July 19, 2017, 10:12. INDICATIONS : Cough and short of breath. MEDICAL HISTORY : Hypertension. Chronic obstructive pulmonary disease. Osteoporosis. Coronary artery disease. SURGICAL HISTORY : Hysterectomy. Heart valve replacement. ENCOUNTER: Initial ACUITY: 3 days PAIN SCORE: 0/10 LOCATION: Bilateral chest FINDINGS: A single view of the chest demonstrates chronic interstitial densities without evidence of mass, infi ltrate or effusion. Cardiomegaly and previous heart valve replacement. Biapical pleural thickening, stable. The cardiomediastinal contours are unremarkable. Osseous structures are intact. CONCLUSION: 1. Cardiomegaly and previous heart valve replacement. 2. Chronic interstitial densities without acute infiltrate. Pavel Conway MD on September 06, 2017 at 14:12 Board Certified Radiologist. This report was verified electronically.
[2017-09-06 14:15] LABS: ALT (GPT) 20 U/L (10-53); AST (GOT) 40 U/L (15-37); GLOMERULAR FILTRATION RATE 36 ML/MIN (>89)
[2017-09-06 14:17] LABS: TOTAL BILIRUBIN ADULT 0.4 MG/DL (0.2-1.0); TOTAL PROTEIN 7.5 GM/DL (6.4-8.2)
[2017-09-06 14:18] LABS: ALKALINE PHOSPHATASE 98 U/L (45-117)
[2017-09-06 14:20] LABS: PROTHROMBIN TIME - PATIENT 10.4 SEC (9.8-11.6); TROPONIN I LESS THAN 0.02 NG/ML (0.02-0.05)
[2017-09-06] MEDS ORDERED: methylPREDNISolone SOD SUCC 125 MG/2 ML VIAL IV PUSH SCH (14:45)
--- NOTE | 2017-09-06 17:27 | HHI.HP ---
[facility] Unknown Admission Diagnosis resp failure Diagnoses: Chief Complaint: coughing/shortness of breath Travel History International Travel<30 Days: No Contact w/Intl Traveler <30 Da: No Traveled to Known Affected Are: No History of Present Illness 86-year-old white female being admitted for hypoxia and SOB. Patient was in her usual state of health until about 1-2 weeks ago when she began experiencing onset of a productive cough and worsening chronic SOB. Describes the sputum as nonbloody. She went to her primary care provider and senior sql developer over a week ago, got outpt CXRs but cannot recall the results. She denies any fevers. The patient had just been discharged for a similar presentation from a hospitalization for shortness of breath about 6 weeks ago. She was discharged on a prolonged prednisone course which should have been tapered in the clinic but the patient does not remember being adjusted on her oral prednisone by any outpatient physician. In the ER she had sats ~ 88%. Review of Systems Except as stated in HPI: all other systems reviewed are Neg Past Family Social History Allergies: Coded Allergies: neomycin (Unverified Allergy, Severe, FACIAL SWELLING, 09/06/17) Uncoded Allergies: Imidozozldnyl (Adverse Reaction, Severe, unknown, 12/09/15) . Physical Exam Vital Signs Vital Signs Date Time Temp Pulse Resp B/P (MAP) Pulse Ox O2 Delivery O2 Flow Rate FiO2 09/06/17 16:51 95 16 147/60 (89) 95 Nasal Cannula 2.00 09/06/17 14:30 98 16 150/62 (91) 95 Nasal Cannula 2.00 09/06/17 13:53 96 Nasal Cannula 2.00 09/06/17 13:25 24 95 Nasal Cannula 2.00 09/06/17 13:25 95 Nasal Cannula 2.00 09/06/17 13:06 98.0 89 16 137/70 (92) 88 Physical Exam VS: afebrile GENERAL: Elderly white female, thin, awake, in no acute distress except for coughing spells SKIN: Warm and dry. EYES: No scleral icterus. No injection or drainage. ENT: No nasal bleeding or discharge. Mucous membranes pink and moist. CARDIOVASCULAR: Regular rate and rhythm. no murmurs RESPIRATORY: No accessory muscle use. Rhonchi rales and crackles heard bilaterally GASTROINTESTINAL: Abdomen soft, non-tender, nondistended. Extremities: No clubbing, cyanosis, or edema. No obvious deformities. MUSCULOSKELETAL: adequate muscle bulk and tone for age and habitus NEUROLOGICAL: Awake and alert. No obvious cranial nerve deficits. No facial droop nor slurred speech noted. PSYCHIATRIC: Appropriate mood and affect; insight and judgment normal. Laboratory Laboratory Tests Test 09/06/17 13:45 White Blood Count 11.1 Red Blood Count 3.96 Hemoglobin 12.4 Hematocrit 37.7 Mean Corpuscular Volume 95.2 Mean Corpuscular Hemoglobin 31.4 Mean Corpuscular Hemoglobin Concent 33.0 Red Cell Distribution Width 13.2 Platelet Count 181 Mean Platelet Volume 8.3 Neutrophils (%) (Auto) 80.7 Lymphocytes (%) (Auto) 9.6 Monocytes (%) (Auto) 8.4 Eosinophils (%) (Auto) 0.2 Basophils (%) (Auto) 1.1 Neutrophils # (Auto) 9.0 Lymphocytes # (Auto) 1.1 Monocytes # (Auto) 0.9 Eosinophils # (Auto) 0.0 Basophils # (Auto) 0.1 CBC Comment DIFF FINAL Differential Comment Prothrombin Time 10.4 Prothromb Time International Ratio 1.0 Activated Partial Thromboplast Time 28.0 Blood Urea Nitrogen 22 Creatinine 1.40 Random Glucose 104 Total Protein 7.5 Albumin 3.6 Calcium Level 8.7 Alkaline Phosphatase 98 Aspartate Amino Transf (AST/SGOT) 40 Alanine Aminotransferase (ALT/SGPT) 20 Total Bilirubin 0.4 Sodium Level 134 Potassium Level 4.5 Chloride Level 98 Carbon Dioxide Level 27.8 Anion Gap 8 Estimat Glomerular Filtration Rate 36 Lactic Acid Level 1.3 Troponin I LESS THAN 0.02 B-Type Natriuretic Peptide 92 Date/Time Source Procedure Growth Status 09/06/17 13:45 Blood Peripheral Aerobic Blood Culture Pending Received 09/06/17 13:45 Blood Peripheral Anaerobic Blood Culture Pending Received 09/06/17 14:20 Nasal Aspirate Influenza Types A,B Antigen (RACHELLE) - Final NEGATIVE FOR FLU A AND B ANTIGEN.... Complete Result Diagram: 09/06/17 1345 09/06/17 1345 Imaging Last Impressions Chest X-Ray 09/06/17 1342 Signed Impressions: Service Date/Time: Wednesday, September 06, 2017 13:58 - CONCLUSION: 1. Cardiomegaly and previous heart valve replacement. 2. Chronic interstitial densities without acute infiltrate. MD Pablo Fairchild VTE Risk Assessment Pablo VTE Risk Assessment: Mod/High Risk (score >= 2) Caprini Risk Assessment Model Point Value = 1 Point Value = 2 Point Value = 3 Point Value = 5 Age 41-60 Minor surgery BMI > 25 kg/m2 Swollen legs Varicose veins or History of unexplained or recurrent spontaneous Oral contraceptives or hormone replacement Sepsis (< 1 month) Serious lung disease, including pneumonia (< 1 month) Abnormal pulmonary function Acute myocardial infarction Congestive heart failure (< 1 month) History of inflammatory bowel disease Medical patient at bed rest Age 61-74 Arthroscopic surgery Major open surgery (> 45 min) Laparoscopic surgery (> 45 min) Malignancy Confined to bed (> 72 hours) Immobilizing plaster cast Central venous access Age >= 75 History of VTE Family history of VTE Factor V Leiden Prothrombin [id number] Lupus anticoagulant Anticardiolipin antibodies Elevated serum homocysteine Heparin-induced thrombocytopenia Other congenital or acquired thrombophilia Stroke (< 1 month) Elective arthroplasty Hip, pelvis, or leg fracture Acute spinal cord injury (< 1 month) Prophylaxis Regimen Total Risk Factor Score Risk Level Prophylaxis Regimen 0-1 Low Early ambulation 2 Moderate Order ONE of the following: *Sequential Compression Device (SCD) *Heparin 5000 units SQ BID 3-4 Higher Order ONE of the following medications: *Heparin 5000 units SQ TID *Enoxaparin/Lovenox 40 mg SQ daily (WT < 150 kg, CrCl > 30 mL/min) *Enoxaparin/Lovenox 30 mg SQ daily (WT < 150 kg, CrCl > 10-29 mL/min) *Enoxaparin/Lovenox 30 mg SQ BID (WT < 150 kg, CrCl > 30 mL/min) AND/OR *Sequential Compression Device (SCD) 5 or more Highest Order ONE of the following medications: *Heparin 5000 units SQ TID (Preferred with Epidurals) *Enoxaparin/Lovenox 40 mg SQ daily (WT < 150 kg, CrCl > 30 mL/min) *Enoxaparin/Lovenox 30 mg SQ daily (WT < 150 kg, CrCl > 10-29 mL/min) *Enoxaparin/Lovenox 30 mg SQ BID (WT < 150 kg, CrCl > 30 mL/min) AND *Sequential Compression Device (SCD) Assessment and Plan Assessment and Plan 86-year-old white female being admitted for acute hypoxic respiratory failure Acute hypoxic respiratory failure -Likely secondary to acute exacerbation of chronic lung disease; independently reviewed the chest x-ray see no acute findings suggestive of pneumonia; may need a tapered course of steroids vs daily prednisone at this point -O2, IV Solu-Medrol, duo nebs, Mucomyst, Acapella -consult pulm in AM htn, hyl - continue home meds reji - IVF lovenox Physician Certification 2 Midnight Certification Type: Admission for Inpatient Services Order for Inpatient Services The services are ordered in accordance with Medicare regulations or non- Medicare payer requirements, as applicable. In the case of services not specified as inpatient-only, they are appropriately provided as inpatient services in accordance with the 2-midnight benchmark. Estimated LOS (days): 3 3 days is the estimated time the patient will need to remain in the hospital, assuming treatment plan goals are met and no additional complications. Post-Hospital Plan: Not yet determined Trevor Earl MD Sep 06, 2017 17:27
[2017-09-06] MEDS ORDERED: RESP: ACETYLCYSTEINE 10% 10 ML NEB NEB PRN (17:30)
[2017-09-06] MEDS: RESP: ALBUTEROL 2.5 MG/IPRATROPIUM 0.5 MG NEB (SCH) NEB ×2 (17:30→19:56)
[2017-09-06] MEDS ORDERED: SODIUM CHLOR 0.9% 250 ML INJ 250 ML IV ONE (17:45)
[2017-09-06] MEDS ORDERED: PILL SPLITTER OTHER PRN (17:45)
[2017-09-06] MEDS ORDERED: methylPREDNISolone SOD SUCC 125 MG/2 ML VIAL IV PUSH ONE (18:00)
[2017-09-06] MEDS: ENOXAPARIN SODIUM 30 MG/0.3 ML SYRINGE SQ SCH (20:49)
[2017-09-06] MEDS: BUDESONIDE-FORMOTEROL 80/4.5 MCG INHALER INH SCH (21:28)
[2017-09-06 21:46] LABS: BILIRUBIN, URINE NEG (NEG); BLOOD, URINE NEG (NEG); GLUCOSE,URINE NEG (NEG); KETONE, URINE TRACE mg/dL (NEG); NITRITE,URINE NEG (NEG); PH, URINE 5.5 (5.0-8.5); URINE LEUKOCYTE ESTERASE NEG (NEG)
[2017-09-06 22:05] LABS: URINE COLOR YELLOW (YELLW/STRAW)
[2017-09-06 22:06] LABS: MUCUS URINE FEW /lpf (OCC)
[2017-09-06 22:07] LABS: SQUAMOUS EPITHELIAL CELL URINE 0-5 /hpf (0-5); WBC, URINE 0-2 /hpf (0-5)
[2017-09-06 22:08] LABS: AMORPHOUS SEDIMENT, URINE SMALL
[2017-09-07] VITALS (8 sets, daily range): BP systolic 107–130; BP diastolic 60–63; PULSE 77–102; RESP 16–20; TEMP 96.3–97.6; O2SAT 93–97
[2017-09-07] MEDS: methylPREDNISolone SOD SUCC 125 MG/2 ML VIAL IV PUSH SCH ×3 (01:57→17:35)
[2017-09-07 06:44] LABS: CALCIUM 8.4 MG/DL (8.5-10.1)
[2017-09-07 06:45] LABS: BICARBONATE 30.3 MEQ/L (21.0-32.0)
[2017-09-07 06:48] LABS: CREATININE 1.3 MG/DL (0.50-1.00)
[2017-09-07] MEDS: RESP: ALBUTEROL 2.5 MG/IPRATROPIUM 0.5 MG NEB (SCH) NEB ×3 (07:45→20:47)
[2017-09-07] MEDS: PRAVASTATIN SOD 20 MG TAB PO SCH (09:05)
[2017-09-07] MEDS: ASPIRIN EC 81 MG TABEC PO SCH (09:05)
[2017-09-07] MEDS: BUDESONIDE-FORMOTEROL 80/4.5 MCG INHALER INH SCH ×2 (09:05→20:59)
[2017-09-07] MEDS: LISINOPRIL 5 MG TAB PO SCH (09:05)
--- NOTE | 2017-09-07 10:19 | HHI.PR ---
Subjective Remarks Nursing denies any deterioration since last night. Patient thinks that the breathing treatments are not helping as much. She thinks is coughing less, she also thinks that she is having less productive sputum. Objective Vital Signs Date Time Temp Pulse Resp B/P (MAP) Pulse Ox O2 Delivery O2 Flow Rate FiO2 09/07/17 07:50 97.1 88 20 125/63 (83) 95 09/07/17 07:48 93 Nasal Cannula 2.00 09/07/17 00:00 97.6 77 16 107/63 (78) 96 09/06/17 20:00 97.9 88 18 140/72 (94) 95 09/06/17 20:00 95 Nasal Cannula 2.00 09/06/17 19:55 95 Nasal Cannula 2.00 09/06/17 17:50 97.3 95 20 135/75 (95) 95 09/06/17 17:27 93 18 95 Nasal Cannula 2.00 09/06/17 16:51 95 16 147/60 (89) 95 Nasal Cannula 2.00 09/06/17 14:30 98 16 150/62 (91) 95 Nasal Cannula 2.00 09/06/17 13:53 96 Nasal Cannula 2.00 09/06/17 13:25 24 95 Nasal Cannula 2.00 09/06/17 13:25 95 Nasal Cannula 2.00 09/06/17 13:06 98.0 89 16 137/70 (92) 88 I/O 09/06/17 09/06/17 09/06/17 09/07/17 09/07/17 09/07/17 07:00 15:00 23:00 07:00 15:00 23:00 Intake Total 250 ml 260 ml Output Total 300 ml 1 ml Balance -50 ml 259 ml Intake Oral 260 ml IV Total 250 ml Output Urine Total 300 ml 1 ml # Voids 1 # Bowel Movements 0 Result Diagram: 09/06/17 1345 09/07/17 0510 Objective Remarks Junky breath sounds bilaterally, no labored breathing today No cyanosis A/P Assessment and Plan 86-year-old white female being admitted for acute hypoxic respiratory failure Acute hypoxic respiratory failure -Likely secondary to acute exacerbation of chronic lung disease; independently reviewed the chest x-ray see no acute findings suggestive of pneumonia; may need a tapered course of steroids vs daily prednisone at this point -wean O2 down to RA if tolerable, IV Solu-Medrol, duo nebs, Mucomyst, Acapella -consult pulm - f/u blood cultures htn, hyl - continue home meds reji - slightly improving, IVFs loveisabellex Trevor Earl MD Sep 07, 2017 10:19
[2017-09-07] MEDS: SODIUM CHLOR 0.9% 1000 ML INJ 1,000 ML IV SCH (10:30)
--- NOTE | 2017-09-07 20:25 | MB ---
cc: Vineet Carbajal MD DATE OF CONSULT: 09/07/2017 REQUESTING PHYSICIAN: Dr. Treovr Earl REASON FOR CONSULTATION: Bronchiectasis and COPD. HISTORY OF PRESENT ILLNESS: Ms. Carr is a pleasant 86-year-old female with a history of bronchiectasis and asbestos exposure. She was recently discharged from the hospital. She came back to the hospital with a history of productive cough and worsening shortness of breath. Did not have any fevers or chills. No night sweats. No hemoptysis. Because of worsening of symptoms, she came to the hospital. She had a workup done. WBC count 11.1, hemoglobin 12.4, hematocrit 37.7, MCV of 95, platelet count 181,000. Sodium 137, potassium 4.4, chloride 100, CO2 of 30, BUN of 28, creatinine 1.3. INR is 1.0. PAST MEDICAL HISTORY: Significant for a history of bronchiectasis, asbestos exposure, heart valve replacement. MEDICATIONS: She is currently taking amlodipine 10 mg a day, aspirin 81 mg a day, losartan 20 mg a daily, lisinopril 2.5 mg a day, Solu-Medrol 125 mg every 8 hours, Symbicort 80/4.5 two puffs twice a day, Lovenox 30 mg a day, albuterol and Atrovent nebulizer treatment, Mucomyst nebulizer treatment. ALLERGIES: NEOMYCIN. SOCIAL HISTORY: She has no history of smoking, has had secondhand smoke exposure. 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 FAMILY HISTORY: She lives with her sister and she has a son and a daughter. REVIEW OF SYSTEMS: She denies any weight loss. No hemoptysis. No DVT or pulmonary embolism. No seizures or stroke. PHYSICAL EXAMINATION: GENERAL: Thin-built, frail elderly female, mildly short of breath. VITAL SIGNS: Blood pressure 126/60, heart rate 93, respirations 20, temperature 96.5. HEENT: Pupils are equal and react to light. Oral mucosa, nasal mucosa normal. NECK: No JVD noted. CHEST: Rales bilaterally. She has bilateral crackles. CARDIOVASCULAR: S1, S2 normal. ABDOMEN: Benign. EXTREMITIES: No edema. IMPRESSION: 1. Bronchiectasis. 2. Chronic obstructive pulmonary disease with exacerbation. 3. Asbestosis. 4. History of heart valve replacement. PLAN: Will continue with IV Solu-Medrol, aerosol treatment with albuterol and Atrovent, and give her Zithromax 500 mg daily , Mucinex 600 mg twice a day. Continue Mucomyst nebulizers. Further treatment will depend on her course in the hospital. Thank you, Dr. Earl, for this consult. MD [facility]/SKYE/lauro , 06:54 PM , 07:22 PM [email or web address]
[2017-09-07] MEDS: AZITHROMYCIN INJ 500 MG in SODIUM CHLOR 0.9% 250 ML INJ 250 ML IV SCH (21:00)
[2017-09-07] MEDS: ENOXAPARIN SODIUM 30 MG/0.3 ML SYRINGE SQ SCH (21:00)
[2017-09-07] MEDS: guaiFENesin E.R. 600 MG TAB PO SCH (21:02)
[2017-09-08] VITALS (7 sets, daily range): BP systolic 110–124; BP diastolic 55–64; PULSE 88–99; RESP 16–20; TEMP 96.3–98.1; O2SAT 92–96
[2017-09-08] MEDS: methylPREDNISolone SOD SUCC 125 MG/2 ML VIAL IV PUSH SCH ×3 (01:57→21:28)
[2017-09-08] MEDS: RESP: ALBUTEROL 2.5 MG/IPRATROPIUM 0.5 MG NEB (SCH) NEB ×3 (07:22→19:57)
[2017-09-08] MEDS: ASPIRIN EC 81 MG TABEC PO SCH (09:52)
[2017-09-08] MEDS: LISINOPRIL 5 MG TAB PO SCH (09:52)
[2017-09-08] MEDS: PRAVASTATIN SOD 20 MG TAB PO SCH (09:53)
[2017-09-08] MEDS: guaiFENesin E.R. 600 MG TAB PO SCH ×2 (09:53→21:28)
[2017-09-08] MEDS: BUDESONIDE-FORMOTEROL 80/4.5 MCG INHALER INH SCH ×2 (09:54→21:27)
[2017-09-08] MEDS: SODIUM CHLOR 0.9% 1000 ML INJ 1,000 ML IV SCH (09:55)
--- NOTE | 2017-09-08 10:40 | HHI.PR ---
Subjective Remarks Nursing denies any deterioration since last night. Patient thinks she is breathing better but says that her breathing is still not back at baseline. Says that she is still coughing. Objective Vital Signs Date Time Temp Pulse Resp B/P (MAP) Pulse Ox O2 Delivery O2 Flow Rate FiO2 09/08/17 07:50 97.1 94 20 121/63 (82) 93 09/08/17 07:23 95 21 09/08/17 00:00 96.7 98 18 124/64 (84) 94 09/07/17 20:50 95 21 09/07/17 20:00 94 Room Air 09/07/17 20:00 97.0 102 18 130/60 (83) 94 09/07/17 15:50 96.5 93 20 126/60 (82) 93 09/07/17 14:21 97 21 09/07/17 11:50 96.3 86 20 121/60 (80) 93 I/O 09/07/17 09/07/17 09/07/17 09/08/17 09/08/17 09/08/17 07:00 15:00 23:00 07:00 15:00 23:00 Intake Total 260 ml 461 ml 1133 ml Output Total 1 ml 300 ml Balance 259 ml 161 ml 1133 ml Intake Oral 260 ml 461 ml IV Total 1133 ml Output Urine Total 1 ml 300 ml # Bowel Movements 0 0 Result Diagram: 09/06/17 1345 09/07/17 0510 Objective Remarks Junky breath sounds bilaterally, no labored breathing today, very good aeration otherwise No cyanosis A/P Assessment and Plan 86-year-old white female being admitted for acute hypoxic respiratory failure Acute hypoxic respiratory failure -Down to RA w/ improvement - IV Solu-Medrol, duo nebs, Mucomyst, Acapella, azithromycin -Pulmonology following, appreciate will taper steroids htn, hyl - continue home meds reji - recheck in AM, IVF lovenox Trevor Earl MD Sep 08, 2017 10:40
--- NOTE | 2017-09-08 16:54 | HHI.PR ---
Subjective Remarks 86 YOWF with bronchiectesis, COPD exac breathing better Cough with sp has Pulm congestion No fever Objective Vital Signs Vital Signs Date Time Temp Pulse Resp B/P (MAP) Pulse Ox O2 Delivery O2 Flow Rate FiO2 09/08/17 16:43 Room Air 09/08/17 11:50 96.3 88 20 115/59 (77) 92 09/08/17 07:50 97.1 94 20 121/63 (82) 93 09/08/17 07:23 95 21 09/08/17 00:00 96.7 98 18 124/64 (84) 94 09/07/17 20:50 95 21 09/07/17 20:00 94 Room Air 09/07/17 20:00 97.0 102 18 130/60 (83) 94 I/O 09/07/17 09/07/17 09/07/17 09/08/17 09/08/17 09/08/17 07:00 15:00 23:00 07:00 15:00 23:00 Intake Total 260 ml 461 ml 1133 ml Output Total 1 ml 300 ml Balance 259 ml 161 ml 1133 ml Intake Oral 260 ml 461 ml IV Total 1133 ml Output Urine Total 1 ml 300 ml # Bowel Movements 0 0 Result Diagram: 09/06/17 1345 09/07/17 0510 Objective Remarks GENERAL: Thin built WF mild sob SKIN: Warm and dry. HEAD: Normocephalic. EYES: No scleral icterus. No injection or drainage. NECK: Supple, trachea midline. No JVD or lymphadenopathy. CARDIOVASCULAR: Regular rate and rhythm without murmurs, gallops, or rubs. RESPIRATORY: Breath sounds equal bilaterally. No accessory muscle use. Bilat crackles GASTROINTESTINAL: Abdomen soft, non-tender, nondistended. MUSCULOSKELETAL: No cyanosis, or edema. BACK: Nontender without obvious deformity. No CVA tenderness. A/P Assessment and Plan Impression: COPD Exac Bronchitis Bronchiectesis Heart valve replacement PLAN: IV Solumedrol Aerosol nebs Cont Abx Acapella Mucinex bid DC plans for home Vineet Carbajal MD Sep 08, 2017 16:54
[2017-09-08] MEDS: AZITHROMYCIN INJ 500 MG in SODIUM CHLOR 0.9% 250 ML INJ 250 ML IV SCH (21:25)
[2017-09-08] MEDS: ENOXAPARIN SODIUM 30 MG/0.3 ML SYRINGE SQ SCH (21:27)
[2017-09-09] VITALS: BP 110/58; PULSE 93; RESP 16; TEMP 94.2; O2SAT 93
[2017-09-09 06:50] LABS: CALCIUM 8.4 MG/DL (8.5-10.1)
[2017-09-09] MEDS: RESP: ALBUTEROL 2.5 MG/IPRATROPIUM 0.5 MG NEB (SCH) NEB ×2 (07:35→13:28)
[2017-09-09 07:40] VITALS: O2SAT 96
[2017-09-09 07:44] LABS: BICARBONATE 28.6 MEQ/L (21.0-32.0); CREATININE 1.3 MG/DL (0.50-1.00)
[2017-09-09 08:00] VITALS: BP 122/57; PULSE 99; RESP 14; TEMP 96.7; O2SAT 93
[2017-09-09] MEDS: guaiFENesin E.R. 600 MG TAB PO SCH (09:58)
[2017-09-09] MEDS: ASPIRIN EC 81 MG TABEC PO SCH (09:58)
[2017-09-09] MEDS: PRAVASTATIN SOD 20 MG TAB PO SCH (09:58)
[2017-09-09] MEDS: methylPREDNISolone SOD SUCC 125 MG/2 ML VIAL IV PUSH SCH (09:59)
[2017-09-09] MEDS: BUDESONIDE-FORMOTEROL 80/4.5 MCG INHALER INH SCH (09:59)
[2017-09-09] MEDS: SODIUM CHLOR 0.9% 1000 ML INJ 1,000 ML IV SCH (10:08)
[2017-09-09] MEDS: LISINOPRIL 5 MG TAB PO SCH (10:09)
[2017-09-09 12:00] VITALS: BP 126/69; PULSE 96; RESP 16; TEMP 96.2; O2SAT 94
[2017-09-09] MEDS ORDERED: AZIT500T2 PO (12:38)
[2017-09-09] MEDS ORDERED: PRED10PA PO (12:38)
--- NOTE | 2017-09-09 12:41 | HHI.DS ---
Discharge Summary Admission Date Sep 06, 2017 at 14:58 Discharge Date: Sep 09, 2017 Admitting Diagnosis resp failure (1) Acute hypoxemic respiratory failure ICD Code: J96.01 - Acute respiratory failure with hypoxia (2) Atypical pneumonia ICD Code: J18.9 - Pneumonia, unspecified organism (3) COPD exacerbation ICD Code: J44.1 - Chronic obstructive pulmonary disease with (acute) exacerbation Status: Acute Procedures none Brief History - From Admission 86-year-old white female being admitted for hypoxia and SOB. Patient was in her usual state of health until about 1-2 weeks ago when she began experiencing onset of a productive cough and worsening chronic SOB. Describes the sputum as nonbloody. She went to her primary care provider and meteorological aide over a week ago, got outpt CXRs but cannot recall the results. She denies any fevers. The patient had just been discharged for a similar presentation from a hospitalization for shortness of breath about 6 weeks ago. She was discharged on a prolonged prednisone course which should have been tapered in the clinic but the patient does not remember being adjusted on her oral prednisone by any outpatient physician. In the ER she had sats ~ 88%. CBC/BMP: 09/06/17 1345 09/09/17 0520 Significant Findings Laboratory Tests Test 09/06/17 13:45 09/06/17 21:00 09/07/17 05:10 09/09/17 05:20 White Blood Count 11.1 TH/MM3 (4.0-11.0) Red Blood Count 3.96 MIL/MM3 (4.00-5.30) Neutrophils (%) (Auto) 80.7 % (16.0-70.0) Monocytes (%) (Auto) 8.4 % (0.0-8.0) Neutrophils # (Auto) 9.0 TH/MM3 (1.8-7.7) Blood Urea Nitrogen 22 MG/DL (7-18) 28 MG/DL (7-18) 57 MG/DL (7-18) Creatinine 1.40 MG/DL (0.50-1.00) 1.30 MG/DL (0.50-1.00) 1.30 MG/DL (0.50-1.00) Aspartate Amino Transf (AST/SGOT) 40 U/L (15-37) Sodium Level 134 MEQ/L (136-145) Estimat Glomerular Filtration Rate 36 ML/MIN (>89) 39 ML/MIN (>89) 39 ML/MIN (>89) Troponin I LESS THAN 0.02 NG/ML Urine Ketones TRACE mg/dL (NEG) Urine Hyaline Casts 10-14 /lpf (RARE) Urine Mucus FEW /lpf (OCC) Random Glucose 150 MG/DL (74-106) 125 MG/DL (74-106) Calcium Level 8.4 MG/DL (8.5-10.1) 8.4 MG/DL (8.5-10.1) Imaging Last Impressions Chest X-Ray 09/06/17 1342 Signed Impressions: Service Date/Time: Wednesday, September 06, 2017 13:58 - CONCLUSION: 1. Cardiomegaly and previous heart valve replacement. 2. Chronic interstitial densities without acute infiltrate. Pavel Conway MD PE at Discharge GENERAL: This is a well-nourished, well-developed patient, in no apparent distress. CARDIOVASCULAR: Regular rate and rhythm without murmurs, gallops, or rubs. RESPIRATORY: Clear to auscultation. Breath sounds equal bilaterally. No wheezes , rales, or rhonchi. GASTROINTESTINAL: Abdomen soft, non-tender, nondistended. Normal active bowel sounds MUSCULOSKELETAL: Extremities without clubbing, cyanosis, or edema. NEURO: Alert & Oriented x4 to person, place, time, situation. Moves all ext x4 Pt update on day of discharge Patient doing well today. Out of bed and on room air. Discharge plans discussed with patient and nursing team. Patient is in agreement Hospital Course Patient is a 86-year-old female who is evaluated and treated for acute respiratory failure which was hypoxemic. Patient improved with bronchodilators , IV steroids. Patient continued to improved and her blood pressure was controlled with home medications. Pulmonary was consulted and patient continue to taper her steroids as well as treatment with pulmonary toilet. Patient also had stable renal function throughout her hospitalization Pt Condition on Discharge: Good Discharge Disposition: Discharge Home Discharge Time: <= 30 minutes Discharge Instructions DIET: Follow Instructions for: As Tolerated, No Restrictions Activities you can perform: Regular-No Restrictions Follow up Referrals: PCP Follow-up - 1 Week New Medications: Azithromycin (Azithromycin) 500 Mg Tab 500 MG PO DAILY for Infection, #5 TAB 0 Refills Prednisone (21) 10 mg tab Dose Pack (Prednisone (21) 10 mg tab Dose Pack) 10 Mg Pack 10 MG PO DIRECTED for Inflammation, #1 DSPK 0 Refills Continued Medications: Albuterol 18 GM Inh (Ventolin Hfa 18 GM Inh) 90 Mcg/Act Aer 2 PUFF INH Q4-6H PRN for SHORTNESS OF BREATH, #1 INHALER 0 Refills Albuterol Neb (Albuterol Neb) 0.63 Mg/3 Ml Neb 0.63 MG NEB Q6HR NEB PRN for SHORTNESS OF BREATH, #25 NEBULE 0 Refills Amlodipine (Amlodipine) 10 Mg Tab 10 MG PO DAILY for Blood Pressure Management, #30 TAB [address] (Aspirin 81) 81 Mg Tabdr 81 MG PO DAILY, TAB 0 Refills Budesonide-Formoterol Inh (Symbicort Inh) 80-4.5 Mcg/Act Aero 2 PUFF INH Q12HR for Asthma Management, #1 INHALER 0 Refills Lisinopril (Lisinopril) 2.5 Mg Tab 2.5 MG PO DAILY, #30 TAB 0 Refills Lovastatin (Lovastatin) 20 Mg Tab 20 MG PO DAILY for Cholesterol Management, #30 TAB 0 Refills Calista Lyons MD Sep 09, 2017 12:41
== END 2017-09-09 14:32 | disposition home or self-care (01) | DRG 193 ==
LOC: PHED 13:00 → PHEDA 14:58 → PH3A 17:45
PROVIDERS: ADMIT Hospitalist; ATTEND Hospitalist
DX: J18.9 Pneumonia, unspecified organism (principal); J96.01 Acute respiratory failure with hypoxia; N17.9 Acute kidney failure, unspecified; J44.1 Chronic obstructive pulmonary disease with (acute) exacerbation; J44.0 Chronic obstructive pulmonary disease with (acute) lower respiratory infection; I10 Essential (primary) hypertension; Z77.090 Contact with and (suspected) exposure to asbestos; Z77.22 Contact with and (suspected) exposure to environmental tobacco smoke (acute) (chronic); I25.10 Atherosclerotic heart disease of native coronary artery without angina pectoris; M81.0 Age-related osteoporosis without current pathological fracture; Z79.52 Long term (current) use of systemic steroids; Z95.2 Presence of prosthetic heart valve
CPT/HCPCS: 71045; 80048; 80053; 81001; 83605; 83880; 84484; 85025; 85610; 85730; 87040; 87804; 94640; 94664; 94667; 94668; 99285; J0456; J1650; J2930; J7030; J7050